=== PATIENT | female | born 1950 | race Caucasian/White ===

== ENCOUNTER 2025-03-23 01:40 | Emergency (ER) | payer OTHER ==
[~2025-03-23] VITALS: Ht 167.6 cm; Wt 74.3 kg
[2025-03-23 01:47] VITALS: BP 155/94; PULSE 80; RESP 16; TEMP 98.3; O2SAT 97
[2025-03-23] MEDS: LORATADINE 10 MG TAB PO ONE (02:53)
[2025-03-23] MEDS: methylPREDNISolone SOD SUCC 125 MG/2 ML VL IM ONE (02:59)
[2025-03-23] MEDS ORDERED: PRED20TA2 PO (03:03)
[2025-03-23] MEDS ORDERED: LORA10CA PO (03:03)
--- NOTE | 2025-03-23 03:05 | ED.PDOC ---
History of Present Illness(SKN HPI Comments 74 year old female presents to ER with complaints of allergic reaction x 1 day. Patient states she started developing a red itchy/burning rash to face with associated "sensation of throat closing" at 8:30 p.m. today prior to arrival to ER while sitting and resting at home. Denies any known allergies and denies any known triggers for her symptoms. Patient presents to ER speaking in clear and complete sentences, in no distress with mild urticaria noted to face and neck without any angioedema/further skin changes noted. Denies shortness of breath, n/v, chest pain, use of new soaps/detergents/lotions or any further symptoms/complaints Chief Complaint: Rash Time Seen by MD: 02:04 Primary Care Provider: UNKNOWN History of Present Illness: Nurses Notes, Medications, Allergies Allergies: Coded Allergies: NO KNOWN ALLERGIES (Unverified , 03/23/25) Home Meds Active Scripts Prednisone (Prednisone) 20 Mg Tab, 20 MG PO BID for 5 Days, #10 TAB 0 Refills Prov:CADENCE PONCE 03/23/25 Loratadine (Claritin) 10 Mg Cap, 10 MG PO DAILY PRN, #24 CAP 0 Refills Prov:CADENCE PONCE 03/23/25 Information Source: Patient Mode of Arrival: Ambulatory Past Medical History PAST MEDICAL HISTORY: Denies Surgical History: Denies all surgeries [employer] History: No Pertinent [employer] History Family History Family History: Unknown Social History Smoker: Non-Smoker Alcohol: Denies ETOH Use Drugs: Denies Drug Use Lives In: Home Constitutional: denies: chills, diaphoresis, fatigue, fever, malaise, sweats, weakness, others EENTM: reports: others (As stated in HPI) Respiratory: denies: cough, hemoptysis, orthopnea, SOB at rest, shortness of breath, SOB with excertion, stridor, wheezing, others Cardiovascular: denies: chest pain, dizzy spells, diaphoresis, Dyspnea on exertion, edema, irregular heart beat, left arm pain, lightheadedness, palpita tions, PND, syncope, others Gastrointestinal: denies: abdomen distended, abdominal pain, blood streaked goyo wels, constipated, diarrhea, dysphagia, difficulty swallowing, hematemesis, melena, nausea, poor appetite, poor fluid intake, rectal bleeding, rectal pain, vomiting, others Genitourinary: denies: abnormal vagina bleeding, burning, dyspareunia, dysuria, flank pain, frequency, hematuria, incontinence, pain, , vagina discharge, urgency, others Neurological: denies: dizziness, fainting, headache, left sided numbness, left sided weakness, numbness, paresthesia, pre-existing deficit, right sided numbness, right sided weakness, seizure, speech problems, tingling, tremors, weakness, others Musculoskeletal: denies: back pain, gout, joint pain, joint swelling, muscle pain, muscle stiffness, neck pain, others Integumetry: reports: others (As stated in HPI) Allergic/Immunocompromised: denies: Difficulty Healing, Frequent Infections, Hives, Itching, others Hematologic/Lymphatic: denies: anemia, blood clots, easy bleeding, easy bruising, swollen glands, others Endocrine: denies: excessive hunger, excessive sweating, excessive thirst, excessive urination, flushing, intolerance to cold, intolerance to heat, unexplained weight gain, unexplained weight loss, others Psychiatric: denies: anxiety, bipolar disorder, depression, hopeless, panic disorder, schizophrenia, sleepless, suicidal, others Physical Exam General Appearance: No Apparent Distress HEENT: Normal ENT Inspection, PERRL/EOMI, Pharynx Normal, TMs Normal, Other (Mild urticaria noted to face and neck without any angioedema/further skin changes noted) Neck: Full Range of Motion, Non-Tender, Normal Respiratory: Chest Non-Tender, Lungs Clear, No Accessory Muscle Use, No Respiratory Distress, Normal Breath Sounds Cardiovascular: No Murmur, No Gallop, Regular Rate/Rhythm Breast Exam: Deferred Gastrointestinal: NOT DONE Genitalia: Deferred Pelvic: Deferred Rectal: Deferred Extremities: Normal capillary refill, Normal range of motion Neurologic: Alert, No Motor Deficits, Normal Affect, Normal Mood, No Sensory Deficits Cerebellar Function: Normal Reflexes: Normal Skin: Dry, Warm Peripheral Pulses: 2+ carotid (R), 2+ carotid (L), 2+ Radial (R), 2+ Radial (L), 2+ Brachial (R), 2+ Brachial (L) Lymphatic: No Adenopathy Was a procedure done? Was a procedure done?: No Sedation Sedation?: No Differential Diagnosis (INTG) Differential Diagnosis: Drug Reaction, Impetigo Differential Diagnosis: Other (Respiratory distress, angioedema) X-Ray, Labs, Meds, VS Vital Signs Date Time Temp Pulse Resp B/P (MAP) Pulse Ox O2 Delivery O2 Flow Rate FiO2 03/23/25 01:47 98.3 80 16 155/94 97 98.3 03/23/25 01:47 Room Air Current Medications Medications (Trade) Dose Ordered Sig/Nataly Route Start Time Stop Time Status Last Admin Methylprednisolone Sodium Succinate (Solu Medrol) 125 mg ONCE ONCE IM 03/23/25 02:15 03/23/25 02:16 DC 03/23/25 02:59 Loratadine (Claritin Tablet) 10 mg ONCE ONCE PO 03/23/25 02:15 03/23/25 02:16 DC 03/23/25 02:53 Solu-Medrol 125 mg IM ordered Claritin 10 mg p.o. ordered Patient had improvement in symptoms, tolerating p.o. intake well and in no distress prior to discharge Advised to follow up with PCP and rn referral in 1-2 days Patient verbalized understanding and agreeable with current plan of care Advised to return to ER immediately if symptoms worsen Time of 1ST Reevaluation: 02:44 Reevaluation 1ST: N/A Patient Education/Counseling: Diagnosis, Treatment, Prognosis, Need For Follow Up Family Education/Counseling: No Family Present SEPSIS Sepsis Screen Date sepsis recognized/suspect: Mar 23, 2025 Time Sepsis recognized/suspect: 014 Recent Procedure: No On Antibiotic Therapy: No Respiratory Rate >20: No Heart Rate >90: No Temp<36 C (96.8 F) or >38.3 C: No SBP <90 or MAP <65 mmHG: No New Acute Mental Status Change: No Is the patient on CPAP, BIPAP,: No Vital Signs Date Time Temp Pulse Resp B/P (MAP) Pulse Ox O2 Delivery O2 Flow Rate FiO2 03/23/25 01:47 98.3 80 16 155/94 97 98.3 03/23/25 01:47 Room Air Medications Medications Dose Ordered Sig/Nataly Route Start Time Stop Time Status Last Admin Dose Admin Loratadine 10 mg ONCE ONCE PO 03/23/25 02:15 03/23/25 02:16 DC 03/23/25 02:53 Methylprednisolone Sodium Succinate 125 mg ONCE ONCE IM 03/23/25 02:15 03/23/25 02:16 DC 03/23/25 02:59 Departure 1 Departure Time of Disposition: 03:02 Impression: Primary Impression: Allergic reaction Qualified Codes: T78.40XA - Allergy, unspecified, initial encounter Disposition: HOME / SELF CARE / HOMELESS Condition: Stable e-Prescriptions Prednisone (Prednisone) 20 Mg Tab 20 MG PO BID for 5 Days, #10 TAB 0 Refills Prov: CADENCE PONCE 03/23/25 Loratadine (Claritin) 10 Mg Cap 10 MG PO DAILY PRN, #24 CAP 0 Refills Prov: CADENCE PONCE 03/23/25 Discharged With: Friend Critical Care Note Critical Care Time?: No Stability Stability form required: No Heart Score Heart Score: Heart Score Response (Comments) Value History N/A 0 EKG N/A 0 Age N/A 0 Risk Factors N/A 0 Troponin N/A 0 Total 0 CADENCE PONCE Mar 23, 2025 03:05
== END 2025-03-23 04:21 | disposition home or self-care (01) ==
LOC: ER 01:40
DX: L29.9 Pruritus, unspecified (principal); T78.40XA Allergy, unspecified, initial encounter; X58.XXXA Exposure to other specified factors, initial encounter
CPT/HCPCS: 96372; 99283; J2919